=== PATIENT | female | born 1995 | race Caucasian/White ===

== ENCOUNTER 2018-09-20 19:21 | Emergency (ER) | payer OTHER ==
[~2018-09-20] VITALS: Ht 182.9 cm; Wt 75.1 kg
[~2018-09-20 19:21] MED LIST: HYDR-3653 PO; PROM12.55 PO; PROM12.553 PO
[2018-09-20] MEDS ORDERED: ACETAMINOPHEN 500 MG TABLET ONE (19:33)
--- NOTE | 2018-09-20 19:35 | NUR ---
PT GIVEN 1000MG TYLENOL IN TRIAGE.
[2018-09-20] MEDS ORDERED: ACETAMINOPHEN 500 MG TABLET PO ONE (20:00)
[2018-09-20 20:05] LABS: BASOPHILS # (AUTO) 0.01 x10^3/uL (0-0.1); BASOPHILS % (AUTO) 0 % (0-1); EOSINOPHILS # (AUTO) 0.02 x10^3/uL (0-0.4); EOSINOPHILS % (AUTO) 0 % (1-7); LYMPHOCYTES % (AUTO) 6 % (22-44); MD NO; MEAN CORPUSCULAR HEMOGLOBIN 26.4 pg (27.0-34.8); MEAN CORPUSCULAR HGB CONC 32.6 g/dL (32.4-35.8); MEAN PLATELET VOLUME 9.4 fL (7.4-10.4); MONOCYTES # (AUTO) 0.35 x10^3/uL (0.2-0.8); MONOCYTES % (AUTO) 4 % (2-9); NEUTROPHILS # (AUTO) 8.08 x10^3/uL (1.8-6.8); NEUTROPHILS % (AUTO) 90 % (42-75); PLATELET COUNT 273 x10^3/uL (130-400); RED CELL DISTRIBUTION WIDTH 14.6 % (9.6-15.2)
[2018-09-20 20:07] LABS: RAPID INFLUENZA A Negative (Negative); RAPID INFLUENZA B Negative (Negative)
[2018-09-20 20:11] LABS: ALANINE AMINOTRANSFERASE 19 U/L (12-78); ALBUMIN 4.2 g/dL (3.4-5.0); ANION GAP 8 mmol/L (5-15); CALCIUM 9.2 mg/dL (8.5-10.1); CHLORIDE 106 mmol/L (98-107)
[2018-09-20 20:13] LABS: INTERNATIONAL NORMALIZED RATIO 0.96 (0.93-1.1); PROTHROMBIN TIME 10.1 Seconds (9.6-11.5)
[2018-09-20 20:14] LABS: ALKALINE PHOSPHATASE 78 U/L (45-117); BILIRUBIN,TOTAL 0.6 mg/dL (0.2-1.0); TOTAL PROTEIN 7.4 g/dL (6.4-8.2)
--- NOTE | 2018-09-20 20:29 | NUR ---
PT PLACED IN CONTACTS IMMEDIATELY AFTER PLACEMENT IN ROOM.
[2018-09-20 20:30] VITALS: BP 112/77
--- NOTE | 2018-09-20 20:33 | NUR ---
PT PRESENTS TO ED C/O GENERALIZED PAIN, INCREASING NECK PAIN--WORSE WHILE NOT MOVING IT-- AND WEAKNESSx1 DAY. C/O NAUSEA AND HOT AND COLD FLASHESx2 DAYS. DENIES ANY ONE AT HOME SICK OR AT WORK. PT HAS FEVER HERE IN ED. GIVEN TYLENOL AND FEVER TRENDING DOWN. MONITORING APPLIED. VSS. CALL LIGHT WITHIN REACH. FAMILY AT BEDSIDE. AWAITING MD ASSESSMENT.
[2018-09-20] MEDS ORDERED: DEXAMETHASONE 4 MG TABLET PO ONE (21:00)
[2018-09-20] MEDS ORDERED: DEXAMETHASONE 4 MG TABLET ONE (21:15)
--- NOTE | 2018-09-20 21:22 | NUR ---
Pt medicated per mar. Given warm blanket for comfort. NADN. No other immediate needs at this time. Call light within reach. Family at bedside.
[2018-09-20] MEDS ORDERED: IBUPROFEN 600 MG TABLET ONE (21:28)
[2018-09-20] MEDS ORDERED: IBUPROFEN 200 MG TABLET PO ONE (21:30)
--- NOTE | 2018-09-20 21:33 | NUR ---
Pt originally wanted pain medication. notified and aylin ordered. This RN to give, pt refused. aware during recheck of pt. awaiting d/c paperwork.
== END 2018-09-20 21:51 | disposition home or self-care (01) ==
LOC: ED 21:47
DX: J02.0 Streptococcal pharyngitis (principal); F17.200 Nicotine dependence, unspecified, uncomplicated
CPT/HCPCS: 36415; 71046; 80053; 83605; 84145; 85025; 85610; 85730; 87040; 87081; 87147; 87400; 87880; 99284